=== PATIENT | female | born 1990 | race Caucasian/White ===

== ENCOUNTER 2022-03-26 01:08 | Inpatient (IN) | payer BC ==
[~2022-03-26] VITALS: Ht 157.5 cm; Wt 72.3 kg
[2022-03-26] VITALS (79 sets, daily range): BP systolic 97–143; BP diastolic 55–99; PULSE 61–101; TEMP 97.8–100
--- NOTE | 2022-03-26 01:20 | NUR ---
Ambulatory to unit for labor assessment, accompanied by spouse. Pt reports SROM @ 2330, and continues leaking. Oriented to room ,monitor, plan of care.
--- NOTE | 2022-03-26 03:00 | NUR ---
PCN completed. IV to INT. off monitor to move around room. Borthing ball provided.
--- NOTE | 2022-03-26 03:45 | NUR ---
to bathroom, then on monitor. Denies increase in cramping or contractions. 0407 Off monitor, to move around in room.
[2022-03-26 04:42] LABS: BASO # 0.1 K/mm3 (0.0-0.2); BASO % 0.5 % (0.0-2.0); EOS % 0.1 % (0.0-4.0); GRAN # 7.2 K/mm3 (1.4-6.5); GRAN % 68.6 % (42.2-75.2); HEMOGLOBIN 12.4 g/dl (12.5-16.0); LYMPH # 2.3 K/mm3 (1.2-3.4); LYMPH % 22.2 % (20.0-51.0); MEAN CELL VOLUME 96 fl (80.0-100.0); MEAN CORPUSCULAR HEMOGLOBIN 34 pg (27-31); MEAN CORPUSCULAR HGB CONC 35 g/dl (33.0-37.0); MEAN PLATELET VOLUME 12.6 fl (7.4-10.4); MONO # 0.9 K/mm3 (0.1-0.6); MONO % 8.2 % (1.7-9.3); PLATELET COUNT 198 K/mm3 (130-400); RED BLOOD COUNT 3.68 M/mm3 (4.10-5.30); REDCELL DISTRIBUTION WIDTH-CV 12.5 % (11.5-14.5)
[2022-03-26 04:44] LABS: HEMATOCRIT 35.2 % (37.0-47.0)
--- NOTE | 2022-03-26 06:20 | NUR ---
0620 THIS RN AND MARKIE Bourgeois RN, TOOK OVER CARE AT THIS TIME. PT UPDATED ON PLAN OF CARE, WHITEBOARD UPDATED, AT BEDSIDE TO HELP PT UP TO THE BATHROOM. PT COMFORTABLE AND HAS NO QUESTIONS AT THIS TIME.
--- NOTE | 2022-03-26 08:05 | NUR ---
0805FHR tracing intermittently due to maternal position on birting ball. RN at bedside adjusting EFM.
--- NOTE | 2022-03-26 08:43 | NUR ---
[address] LINARES. PT REQUESTING EPIDURAL. SEE PHYSICIAN NOTIFICATION. 0844 THIS RN CALLED KAR CM, PER PT REQUEST FOR EPIDURAL. LR BOLUS INFUSING. PT UPDATED ON POC.
--- NOTE | 2022-03-26 09:15 | NUR ---
0915[place]. Vijay E [employer]ER[employer] STRATEGIST at bedside for epidural placement. Pt to edge of bed. 0920Epidural placed and single shot at this time by Fang Linares E [employer]ER[employer] STRATEGIST. See anesthesia record. 0926Pt wedge left. EFM adjusted and tracing well. Plan of care and safety precautions reviewed. Pt verbalizes understanding. Pt resting with call light within reach.
[2022-03-26] MEDS ORDERED: PRENATAL TABLET PO (09:31)
--- NOTE | 2022-03-26 10:40 | NUR ---
1035 PATIENT SUPINE FOR MAZARIEGOS CATHETER PLACEMENT. 1040CATHETER PLACED AT THIS TIME BY THIS RN USING STERILE TECHNIQUE. LATE DECEL NOTED WITH PT IN SUPINE POSITION. DR. LINARES AT BEDSIDE AND REVIEWS PLAN OF CARE WITH PATIENT AND FAMILY. SVE PER PROVIDER /-1. PITOCIN TO 18MU PER DR. LINARES. 1045 PATIENT LEFT LATERAL WITH RL IN STIRRUPS. LATE DECELS RESOLVED.
--- NOTE | 2022-03-26 13:20 | NUR ---
1320 DR. LINARES AT BEDSIDE FOR SVE AND IUPC PLACEMENT. SVE /-[address] LINARES.
--- NOTE | 2022-03-26 13:40 | NUR ---
1340 [facility] TRACING 255 MVU'S.
--- NOTE | 2022-03-26 14:00 | NUR ---
1400 [facility] TRACING 280 MVU'S.
--- NOTE | 2022-03-26 14:13 | NUR ---
1413 PT IN RS SIDE LYING RELEASE POSITION FOR THE DURATION OF 3 CTX. PT TOLERATED WELL. 1419 PT IN LS SIDE LYING RELEASE POSITION FOR THE DURATION OF 3 CTX. TOLERATED WELL. 1427 PT PLACED IN LS EXAGGERATED RUNNERS POSITION WITH PEANUT BALL. TOLERATING WELL. WILL CONTINUE TO MONITOR.
--- NOTE | 2022-03-26 14:30 | NUR ---
1430Recurrent early decels and one variable decel noted.
--- NOTE | 2022-03-26 16:33 | NUR ---
1633Recurrent late decels. Pt repositioned and LR bolus initiated. 1701Dr. Kerrie updated on pt. See physician notification. 1705Intermittent late decel noted. Pt repositioned.
--- NOTE | 2022-03-26 18:55 | NUR ---
SVE /0, pt positioned to far right in runners position with peanut ball under left knee. Maternal temperature of 100.0F. Pen G infusing, see MAR.
--- NOTE | 2022-03-26 19:25 | NUR ---
Recurrent late variable decelerations noted. Pt repositioned to high fowlers. Gentamicin started at this time, see OCT.
--- NOTE | 2022-03-26 20:00 | NUR ---
194 - Recurrent late decelerations noted down to 130 bpm. 1999 - SVE 8/90/0, very minimal change from previous exam. Pt repositioned back to high fowlers with closed knee.
--- NOTE | 2022-03-26 20:42 | NUR ---
2021 - Dr. Sy at bedside. SVE unchanged from previous exam with much caput. Reviewing plan of care with patient and spouse to proceed with section at this time for failure to progress and prolonged rupture of membranes. Pt agreeable at this time. 2029 - Pitocin off at this time. KAR Aleman notified. mri ct tech and nursery notified. 2039 - IUPC out and monitors off. Hibiclens to incision site. 2044 - Pt to OR at this time by labor bed accompanied by spouse.
[2022-03-27 00:15] VITALS: BP 123/69; PULSE 78
[2022-03-27 01:15] VITALS: BP 117/74; PULSE 80
[2022-03-27 05:00] VITALS: BP 124/74; PULSE 68; TEMP 98.1
[2022-03-27 07:30] VITALS: BP 112/71; PULSE 56; TEMP 97.6
--- NOTE | 2022-03-27 10:12 | NUR ---
Initial visit; Parents thanked Community Health Agent for offering congratulations and God's blessings for the of their daughter. Community Health Agent thanked family for choosing [place].
[2022-03-27 16:00] VITALS: BP 100/69; PULSE 78; TEMP 98.3
[2022-03-27 19:10] VITALS: BP 121/82; PULSE 91; TEMP 97.6
--- NOTE | 2022-03-28 06:50 | NUR ---
REPORT RECEIVED FROM OFF GOING OVEREDGERNIKKI. CARE TAKEN TAKEN OVER BY THIS RN.
[2022-03-28 08:29] VITALS: BP 117/75; PULSE 96; TEMP 97.9
[2022-03-28] MEDS ORDERED: IBU600 MG PO (08:51)
[2022-03-28] MEDS ORDERED: ROXICODONE 55 MG/TAB PO (08:52)
[2022-03-28 16:09] VITALS: BP 111/68; PULSE 69; TEMP 97.9
[2022-03-28 20:00] VITALS: BP 124/79; PULSE 88; TEMP 98.2
--- NOTE | 2022-03-29 00:59 | NUR ---
2237 THIS RN RECEIVES REPORT FROM BRIAN RICHMOND AND TAKES OVER CARE.
[2022-03-29 04:12] VITALS: BP 122/81; PULSE 61
[2022-03-29 09:10] VITALS: BP 128/76; PULSE 71; TEMP 98.1
== END 2022-03-29 11:35 | disposition home or self-care (01) | DRG 786 ==
LOC: LDRO 01:08 → LDR 01:58 → OB 01:58
PROVIDERS: Student in an Organized Health Care Education/Training Program; ADMIT Obstetrics & Gynecology
PROC: 10D00Z1 Extraction of Products of Conception, Low, Open Approach (ICD-10-PCS; principal; 2022-03-26)
PROC: 10H07YZ Insertion of Other Device into Products of Conception, Via Natural or Artificial Opening (ICD-10-PCS; 2022-03-26)
DX: O99.824 Streptococcus B carrier state complicating childbirth (principal); O41.1230 Chorioamnionitis, third trimester, not applicable or unspecified; Z3A.39 39 weeks gestation of pregnancy; Z37.0 Single live birth; O76 Abnormality in fetal heart rate and rhythm complicating labor and delivery; O69.81X0 Labor and delivery complicated by cord around neck, without compression, not applicable or unspecified
CPT/HCPCS: J0690; J1580; J2175; J2370; J2405; J2540; J2590; J2795; J7120

== ENCOUNTER 2024-02-14 05:18 | Inpatient (IN) | payer BC ==
[2024-02-14] VITALS (17 sets, daily range): BP systolic 89–117; BP diastolic 51–78; PULSE 62–83; TEMP 68–98.4
[~2024-02-14] VITALS: Ht 157.5 cm; Wt 76.8 kg
[~2024-02-14 05:18] MED LIST: IBU600 MG PO; PRENATAL TABLET PO; ROXICODONE 55 MG/TAB PO
--- NOTE | 2024-02-14 05:50 | NUR ---
0550- PT PRESENTS TO LDR FOR SCHEDULED REPEAT SECTION, AMBULATORY TO ROOM 213, CHANGED INTO GOWN. 0555- EFM X2 APPLIED. IV START TO LEFT WRIST CHARTED, BLOOD DRAWN FOR LABS. LR INFUSING. 0605- PREOP MEDICATION GIVEN ORDERED. PLAN OF CARE FOR C/S DISCUSSED AND QUESTIONS ANSWERED.
[2024-02-14] MEDS ORDERED: Morphine 2 MG/1 ML VIAL [PACU/SDC ONLY] IV PRN (06:00)
[2024-02-14] MEDS ORDERED: LR 1,000 ML IV SCH ×2 (06:00→06:15)
[2024-02-14] MEDS ORDERED: diphenhydrAMINE 50 MG/ML 1 ML VIAL IV PRN (06:00)
[2024-02-14] MEDS ORDERED: Ondansetron 4 MG/2 ML VIAL IV PRN ×2 (06:00→08:45)
[2024-02-14] MEDS ORDERED: droPERidol 2.5 MG/ML 2 ML VIAL IV PRN (06:00)
--- NOTE | 2024-02-14 06:20 | NUR ---
CARE RECEIVED FROM ESTER SANTA RN. PATIENT RESTING IN ROOM. IV ALREADY PLACED IN LEFT HAND AND LACTATED RINGERS RUNNING.
[2024-02-14 06:37] LABS: BASO # 0.1 K/mm3 (0.0-0.2); BASO % 0.6 % (0.0-2.0); EOS % 0.1 % (0.0-4.0); GRAN # 6.8 K/mm3 (1.4-6.5); HEMATOCRIT 37.7 % (37.0-47.0); HEMOGLOBIN 12.9 g/dl (12.5-16.0); LYMPH # 2.4 K/mm3 (1.2-3.4); LYMPH % 23.7 % (20.0-51.0); MEAN CELL VOLUME 95 fl (80.0-100.0); MEAN CORPUSCULAR HEMOGLOBIN 32 pg (27-31); MEAN CORPUSCULAR HGB CONC 34 g/dl (33.0-37.0); MEAN PLATELET VOLUME 11.8 fl (7.4-10.4); MONO # 0.8 K/mm3 (0.1-0.6); MONO % 8.2 % (1.7-9.3); PLATELET COUNT 204 K/mm3 (130-400); RED BLOOD COUNT 3.98 M/mm3 (4.10-5.30); REDCELL DISTRIBUTION WIDTH-CV 12.4 % (11.5-14.5)
[2024-02-14] MEDS ORDERED: Oxytocin 10 UNITS/ML VIAL ONE (07:08)
[2024-02-14] MEDS ORDERED: Ondansetron 4 MG/2 ML VIAL ONE (07:08)
[2024-02-14] MEDS ORDERED: Ketorolac 30 MG/ML VIAL ONE (07:08)
[2024-02-14] MEDS ORDERED: NS 30 ML IV ONE (07:08)
[2024-02-14] MEDS ORDERED: EPINEPHrine 1 MG/1 ML Ampule ONE (07:56)
[2024-02-14] MEDS ORDERED: Morphine 4 MG/ML VIAL IV PRN (08:45)
[2024-02-14] MEDS ORDERED: LR 1,000 ML IV PRN (08:45)
[2024-02-14] MEDS ORDERED: oxyCODONE 5 MG TAB PO PRN (08:45)
[2024-02-14] MEDS ORDERED: Naloxone 0.4 MG/ML VIAL IV PRN (08:45)
[2024-02-14] MEDS ORDERED: Magnes Hydrox (MOM) 80 MG/ML 30 ML CUP PO PRN (08:45)
[2024-02-14] MEDS ORDERED: Loratadine 10 MG TAB PO PRN (08:45)
[2024-02-14] MEDS ORDERED: Measles/Mumps/Rubella Virus Vaccine Live w Diluent 0.5 ML VIAL SQ SCH (08:45)
--- NOTE | 2024-02-14 08:51 | NUR ---
KAR PERSAUD NOTIFIED BY THIS RN THAT MATERNAL BLOOD PRESSURE WAS 100/60 UPON ARRIVAL TO PACU. BP HAS BEEN IN THE UPPER 80S AND MID 90S OVER 50-60 OVER THE LAST 30-45 MINS. SUPERINTENDENT ELECTRIC POWER NOTIFIED THAT PATIENT IS NONSYMPTOMATIC AND REPORTS SHE FEELS FINE. SUPERINTENDENT ELECTRIC POWER STOPPED INTO ROOM SHORTLY AFTER CALL AND CONFIRMED THIS. SUPERINTENDENT ELECTRIC POWER IS OKAY WITH CURRENT VITALS.
[2024-02-14] MEDS ORDERED: Acetaminophen 500 MG TAB PO SCH (09:00)
--- NOTE | 2024-02-14 10:01 | NUR ---
KAR PERSAUD NOTIFIED THAT MATERNAL BLOOD PRESSURE IS STILL RUNNING IN THE MID 90S OVER UPPER 50S. KAR NOTIFIED THAT PATIENT IS STILL NOT SYMPTOMATIC. KAR STATES THAT HE IS OKAY WITH THESE VITALS.
[2024-02-14] MEDS ORDERED: Ibuprofen 600 MG TAB PO SCH (15:00)
[2024-02-14] MEDS ORDERED: Sennosides/Docusate 8.6-50 MG TAB PO SCH (17:00)
[2024-02-14] MEDS ORDERED: traZODone 50 MG TAB PO PRN (21:00)
[2024-02-15 03:20] VITALS: BP 126/84; PULSE 68; TEMP 98
[2024-02-15 07:34] VITALS: BP 107/75; PULSE 83; TEMP 98.6
[2024-02-15 16:00] VITALS: BP 110/77; PULSE 86; TEMP 98.3
[2024-02-15 22:25] VITALS: BP 108/73; PULSE 74; TEMP 98.2
[2024-02-16 06:43] VITALS: BP 103/69; PULSE 70; TEMP 97.9
--- NOTE | 2024-02-16 13:15 | NUR ---
DISCHARGE INSTRUCTIONS REVIEWED WITH PT REGARDING FOLLOW-UP, S/S OF INFECTION, PAIN MANAGEMENT/MEDICATIONS, AND REASONS TO CALL/SEE PHYSICIAN. QUESTIONS INVITED AND ANSWERED. PT VERBALIZES UNDERSTANDING.
== END 2024-02-16 13:30 | disposition home or self-care (01) | DRG 788 ==
LOC: OB 05:18
PROVIDERS: ADMIT Obstetrics & Gynecology
PROC: 10D00Z1 Extraction of Products of Conception, Low, Open Approach (ICD-10-PCS; principal; 2024-02-14)
DX: O34.211 Maternal care for low transverse scar from previous cesarean delivery (principal); O99.824 Streptococcus B carrier state complicating childbirth; Z3A.39 39 weeks gestation of pregnancy; Z37.0 Single live birth
CPT/HCPCS: J0171; J0665; J0690; J1100; J1885; J2405; J2590; J7120